=== PATIENT | female | born 1970 | race Caucasian/White ===

== ENCOUNTER 2018-10-28 02:24 | Emergency (ER) | payer OTHER, SELFPAY ==
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
== END 2018-10-28 04:20 | disposition home or self-care (01) ==
LOC: MADERS 02:24
DX: S00.83XA Contusion of other part of head, initial encounter (principal); E11.40 Type 2 diabetes mellitus with diabetic neuropathy, unspecified; I10 Essential (primary) hypertension; F41.9 Anxiety disorder, unspecified; F32.9 Major depressive disorder, single episode, unspecified; V89.2XXA Person injured in unspecified motor-vehicle accident, traffic, initial encounter
CPT/HCPCS: 70450; 70486; 72125

== ENCOUNTER 2023-06-26 09:27 | Emergency (ER) | payer OTHER, SELFPAY ==
[2023-06-26] MEDS ORDERED: Dexamethasone 10 MG/ML VIAL ONE (10:01)
[2023-06-26] MEDS ORDERED: Acetaminophen 500 MG TAB ONE (10:01)
[2023-06-26] MEDS ORDERED: Lidocaine 4% Patch ONE (10:02)
== END 2023-06-26 10:59 | disposition home or self-care (01) ==
LOC: MADERS 09:27
DX: M54.41 Lumbago with sciatica, right side (principal); I10 Essential (primary) hypertension; F17.210 Nicotine dependence, cigarettes, uncomplicated
CPT/HCPCS: 72131; 96372; J1100